=== PATIENT | female | born 1940 | race Caucasian/White ===

== ENCOUNTER 2023-05-27 13:33 | Outpatient (CLI) | payer MEDICARE, BC | END 2023-05-27 13:34 | disposition home or self-care (01) | LOC: CSHMAMMO 13:33 | PROVIDERS: ATTEND Internal Medicine | DX: Z12.31 Encounter for screening mammogram for malignant neoplasm of breast (principal); N63.10 Unspecified lump in the right breast, unspecified quadrant; Z98.82 Breast implant status | CPT/HCPCS: 77063; 77067 ==

== ENCOUNTER 2024-08-03 14:29 | Outpatient (CLI) | payer MEDICARE | END 2024-08-03 14:30 | disposition home or self-care (01) | LOC: CSHULT 14:29 | PROVIDERS: ATTEND Nurse Practitioner | DX: I49.9 Cardiac arrhythmia, unspecified (principal); I34.0 Nonrheumatic mitral (valve) insufficiency | CPT/HCPCS: 93306 ==